=== PATIENT | female | born 1970 | race Caucasian/White ===

== ENCOUNTER → 2018-06-26 | Outpatient (CLI) | payer OTHER ==
[~2018-06-26] VITALS: Ht 154.9 cm; Wt 122.4 kg
[~2018-06-26] MED LIST: ALLERGY10 M2 PO; BENAZEPRIL HCL20 MG PO; DICLOFENAC SOD100 MG PO; LORATADINE10 M2 PO; LOTREL 10/21 CAPSULE PO; Levaquin PO; NORVASC10 MG PO; Proventil,Ventolin H IH; STRATTERA80 MG PO; TYLENOL ARTHRI650 M2 PO; VENLAFAXINE HC150 M1 PO; ZOLOFT100 MG PO; ZOLOFT50 M1 PO
== END | disposition home or self-care (01) ==
LOC: AMB 13:44
PROC: 0DBN8ZX Excision of Sigmoid Colon, Via Natural or Artificial Opening Endoscopic, Diagnostic (ICD-10-PCS; principal; 2018-06-26)
PROC: 0DBM8ZX Excision of Descending Colon, Via Natural or Artificial Opening Endoscopic, Diagnostic (ICD-10-PCS; principal; 2018-06-26)
DX: Z12.11 Encounter for screening for malignant neoplasm of colon (principal); D12.4 Benign neoplasm of descending colon; D12.5 Benign neoplasm of sigmoid colon; K57.30 Diverticulosis of large intestine without perforation or abscess without bleeding; I10 Essential (primary) hypertension; G47.30 Sleep apnea, unspecified; Z68.43 Body mass index [BMI] 50.0-59.9, adult; F41.9 Anxiety disorder, unspecified; F32.9 Major depressive disorder, single episode, unspecified; Z98.890 Other specified postprocedural states; Z87.891 Personal history of nicotine dependence; Z88.5 Allergy status to narcotic agent
CPT/HCPCS: 88305; 93005; J2250